=== PATIENT | female | born 1985 | race Caucasian/White ===

== ENCOUNTER 2019-04-12 08:57 | Day surgery (SDC) | payer OTHER, BC ==
[2019-04-12] MEDS: LACTATED RINGER'S 1,000 ML IV (09:48)
[2019-04-12 09:54] LABS: ADD MAN DIFF? NO
[2019-04-12 10:00] LABS: BASOPHILS % 0.5 % (0.0-2.0); EOSINOPHILS # 0.1 10^3/ul (0.0-0.5); EOSINOPHILS % 0.8 % (0.0-7.0); HEMATOCRIT 35.6 % (37.0-47.0); HEMOGLOBIN 11.9 g/dl (12.0-16.0); LYMPHOCYTES # 1.5 10^3/ul (0.8-2.9); LYMPHOCYTES % 25.4 % (15.0-51.0); MEAN CORPUSCULAR HGB CONC 33.4 g/dl (32.0-37.0); MEAN CORPUSCULAR VOLUME 95.7 fl (82.0-101.0); MONOCYTE # 0.3 10^3/ul (0.3-0.9); MONOCYTES % 5.8 % (0.0-11.0); NEUTROPHILS % 67.2 % (39.0-77.0); PLATELET COUNT 210 10^3/UL (140-415); RED BLOOD COUNT 3.72 10^6/ul (4.20-5.40); RED CELL DISTRIBUTION WIDTH 13.2 % (11.5-14.5)
[2019-04-12 10:00] LABS: WHITE BLOOD COUNT 5.9 10^3/ul (4.8-10.8)
[2019-04-12] MEDS ORDERED: CEFAZOLIN 2 GM/50 ML (PMX) 50 ML IVPB (10:00)
[2019-04-12 10:14] LABS: ADD UMIC YES; ALANINE AMINOTRANSFERASE 16 IU/L (13-69); ALBUMIN 4.2 g/dl (3.3-4.9); ALKALINE PHOSPHATASE 43 IU/L (42-121); ANION GAP 7 (5-13); ASPARTATE AMINO TRANSFERASE 17 IU/L (15-46); BLOOD UREA NITROGEN 12 mg/dl (7-20); CALCIUM 9.2 mg/dl (8.4-10.2); CARBON DIOXIDE 28 mmol/L (21-31); CHLORIDE 104 mmol/L (97-110); CREATININE 0.49 mg/dl (0.44-1.00); Estimated GFR > 60 mL/min (>60); GLUCOSE 91 mg/dl (70-220); POTASSIUM 3.7 mmol/L (3.5-5.1); SODIUM 139 mmol/L (135-144); TOTAL PROTEIN 7.7 g/dl (6.1-8.1); UR ASCORBIC ACID NEGATIVE (NEGATIVE); UR BILIRUBIN (Dip) NEGATIVE (NEGATIVE); UR BLOOD (Dip) 3+ mg/dL (NEGATIVE); UR CLARITY SLIGHTLY CLOUDY (CLEAR); UR COLOR YELLOW (YELLOW); UR GLUCOSE (Dip) NEGATIVE (NEGATIVE); UR KETONES (Dip) NEGATIVE (NEGATIVE); UR LEUKOCYTE ESTERASE (Dip) TRACE Leu/ul (NEGATIVE); UR NITRITE (Dip) NEGATIVE (NEGATIVE); UR RBC 6 /HPF (0-5); UR SPECIFIC GRAVITY (Dip) 1.017 (1.003-1.030); UR SQUAMOUS EPITHELIAL CELL MODERATE /HPF (FEW); UR TOTAL PROTEIN (Dip) NEGATIVE (NEGATIVE); UR UROBILINOGEN (Dip) NEGATIVE (NEGATIVE); UR WBC 8 /HPF (0-5)
[2019-04-12 10:18] LABS: INR 0.98; PROTIME 13.1 Sec (11.9-14.9)
[2019-04-12 10:19] LABS: PARTIAL THROMBOPLASTIN TIME 33.8 Sec (23.0-35.0)
[2019-04-12] MEDS ORDERED: METHYLERGONOVINE 0.2 MG INJ (10:49)
[2019-04-12] MEDS ORDERED: FENTAnyl 50 MCG/ML VIAL IV ×2 (11:00)
[2019-04-12] MEDS ORDERED: OXYCODONE/ACETAMINOPHEN (5/325) TAB PO ×2 (11:00)
[2019-04-12] MEDS ORDERED: CEFAZOLIN 1 GM INJ (11:00)
[2019-04-12] MEDS ORDERED: ONDANSETRON 4 MG INJ (11:00)
[2019-04-12] MEDS ORDERED: morphine 2 MG INJ IV ×2 (11:00)
[2019-04-12] MEDS ORDERED: ETOMIDATE 20 MG INJ (11:00)
[2019-04-12] MEDS ORDERED: ALBUTEROL 0.083% (NEB) 2.5 MG/3 ML AMP HHN (11:00)
[2019-04-12] MEDS ORDERED: FENTAnyl 50 MCG/ML VIAL (11:00)
[2019-04-12] MEDS ORDERED: hydrALAzine 20 MG INJ IV (11:00)
[2019-04-12] MEDS ORDERED: LABETALOL HCL 20MG INJ IV (11:00)
[2019-04-12] MEDS ORDERED: ONDANSETRON 4 MG INJ IV (11:00)
[2019-04-12] MEDS ORDERED: ROCURONIUM 50 MG INJ (11:00)
[2019-04-12] MEDS ORDERED: HYDROmorphONE 1 MG/5 ML IV SYRINGE IV ×3 (11:00)
[2019-04-12] MEDS ORDERED: DEXAMETHASONE 4 MG/ML 5 ML INJ (11:00)
[2019-04-12] MEDS ORDERED: DIPHENHYDRAMINE 50 MG INJ IV (11:00)
[2019-04-12] MEDS ORDERED: EPHEDrine 25 MG/5 ML SYG IV (11:00)
[2019-04-12] MEDS ORDERED: FAMOTIDINE 20 MG INJ (11:01)
[2019-04-12] MEDS ORDERED: OXYTOCIN 10 UNIT INJ ×2 (11:50→11:53)
[2019-04-12] MEDS ORDERED: SILVER NITRATE SWAB (11:57)
[2019-04-12] MEDS: SILVER NITRATE SWAB TOP (12:05)
[2019-04-12] MEDS: MISOPROSTOL 200 MCG TAB PR (12:37)
[2019-04-12] MEDS: ACETAMINOPHEN 1000MG/100ML IV 100 ML IVPB (12:39)
[2019-04-12] MEDS: MEPERIDINE 25 MG INJ IV (12:57)
== END 2019-04-12 13:44 | disposition home or self-care (01) ==
LOC: SDS 08:57
DX: O02.1 Missed abortion (principal); Z3A.14 14 weeks gestation of pregnancy; D64.9 Anemia, unspecified; E03.9 Hypothyroidism, unspecified; D25.9 Leiomyoma of uterus, unspecified
CPT/HCPCS: 59821; 71045; 80053; 81001; 85025; 85610; 85730; 86850; 86900; 86901; 88305